=== PATIENT | female | born 1955 | race Caucasian/White ===

== ENCOUNTER 2019-10-26 19:28 | Emergency (ER) | payer MEDICAID ==
[~2019-10-26] VITALS: Ht 162.6 cm; Wt 53.6 kg
[2019-10-26] MEDS ORDERED: CYCL-1 PO (22:40)
[2019-10-26] MEDS ORDERED: IBUP-1984 PO (22:40)
[2019-10-26 22:48] VITALS: BP 127/63
== END 2019-10-26 22:50 | disposition home or self-care (01) ==
LOC: ER 19:29
DX: S16.1XXA Strain of muscle, fascia and tendon at neck level, initial encounter (principal); G44.209 Tension-type headache, unspecified, not intractable; Z88.0 Allergy status to penicillin; Z88.1 Allergy status to other antibiotic agents; X50.1XXA Overexertion from prolonged static or awkward postures, initial encounter; Y93.89 Activity, other specified; Y92.89 Other specified places as the place of occurrence of the external cause; Y99.9 Unspecified external cause status
CPT/HCPCS: 70450; 72125; 93005; 99284

== ENCOUNTER 2023-05-08 19:32 | Emergency (ER) | payer MEDICARE, MEDICAID ==
[~2023-05-08] VITALS: Ht 162.6 cm; Wt 55.0 kg
[~2023-05-08 19:32] MED LIST: CYCL-1 PO
[2023-05-08 19:37] VITALS: BP 157/89
[2023-05-08] MEDS ORDERED: cefuroxime axetil 250mg tablet PO ONE (21:10)
[2023-05-08] MEDS ORDERED: metroNIDAZOLE 500mg tablet PO ONE (21:10)
[2023-05-08] MEDS ORDERED: CEFU500T66 PO (21:14)
[2023-05-08] MEDS ORDERED: METR-159 PO (21:14)
== END 2023-05-08 21:49 | disposition home or self-care (01) ==
LOC: ER 19:33
DX: S60.221A Contusion of right hand, initial encounter (principal); S80.12XA Contusion of left lower leg, initial encounter; Z88.0 Allergy status to penicillin; Z88.8 Allergy status to other drugs, medicaments and biological substances; Z79.899 Other long term (current) drug therapy; Z88.1 Allergy status to other antibiotic agents; W55.01XA Bitten by cat, initial encounter; Y93.89 Activity, other specified; Y92.89 Other specified places as the place of occurrence of the external cause; Y99.8 Other external cause status
CPT/HCPCS: 99283

== ENCOUNTER → 2023-10-09 | Emergency (ER) | payer MEDICARE, MEDICAID ==
[~2023-10-09] VITALS: Ht 167.6 cm; Wt 54.1 kg
[~2023-10-09] MED LIST changes: +ALBU18HF2 INH; +CEFU500T66 PO; +HYDR-3927 PO; +KEN0.1O TP
[2023-10-09 14:07] VITALS: BP 184/78; PULSE 121; RESP 18; TEMP 98; O2SAT 98
== END | disposition home or self-care (01) ==
LOC: ER 14:05
DX: L23.9 Allergic contact dermatitis, unspecified cause (principal); Z88.0 Allergy status to penicillin; Z88.1 Allergy status to other antibiotic agents; Z79.899 Other long term (current) drug therapy
CPT/HCPCS: 99281; 99283